=== PATIENT | male | born 1965 | race Caucasian/White ===

== ENCOUNTER → 2018-09-16 | Outpatient (CLI) | payer OTHER ==
[2015-01-08 14:30] VITALS: BP 155/99
[~2018-09-16] MED LIST: ALBU2.5V8 INH; CETI10TA16 PO; DILT120C2 PO; FOLI1TAB6 PO; FURO40TA4 PO; POTA10TA12 PO; RIVA20TA2 PO; VARE0.5T PO
--- NOTE | 2018-09-17 08:53 | CARD ---
MR#: [id number] Date of Study: 09/16/2018 Ordering Physician: STANLEY OLVERA, Referring Physician: STANLEY OLVERA Tech: Sherine Islas RDCS APPROVED REPORT EXAM: Two-dimensional and M-mode echocardiogram with Doppler and color Doppler. Other Information Quality : Good Rhythm : Atrial Fibrillation INDICATION Atrial Fibrillation 2D DIMENSIONS RVDd3.2 (2.9-3.5cm)Left Atrium(2D)3.9 (1.6-4.0cm) IVSd1.1 (0.7-1.1cm)Aortic Root(2D)3.7 (2.0-3.7cm) LVDd6.1 (3.9-5.9cm)LVOT Diameter2.1 (1.8-2.4cm) PWd1.1 (0.7-1.1cm)LVDs4.2 (2.5-4.0cm) FS (%) 31.6 %SV110.1 ml LVEF(%)58.6 (>50%) Aortic Valve AoV Peak Aaron.169.2cm/sAoV VTI30.6cm AO Peak GR.11.4mmHgLVOT Peak Aaron.130.9cm/s AO Mean GR.6mmHgAVA (VMAX)2.75cm2 BLANCA (VTI)3.52kq6MN P 1/2 Gzcd519qt Mitral Valve MV E Qvsolasr976.8cm/sMV DECEL IVDB236te MV A Velocity2.0cm/sE/A Ratio61.9 Tricuspid Valve TR P. Nwxseban657ew/sRAP SGPXPWND8leDn TR Peak Gr.77poYuVXVI85pxYh Pulmonary Vein S1 Uukuitnj61.4cm/sD2 Cgxpxqaz68.1cm/s LEFT VENTRICLE The Left Ventricle is mildly dilated. There is normal left ventricular wall thickness. The left ventr icular systolic function is normal and the ejection fraction is within normal range. The Ejection Fra ction is 55-60%. There is normal LV segmental wall motion. Tissue Doppler imaging reveals moderate le ft ventricular diastolic dysfunction. RIGHT VENTRICLE The right ventricle is normal size. The right ventricular systolic function is normal. ATRIA The left atrium is mildly dilated. The right atrium size is normal. The interatrial septum is intact with no evidence for an atrial septal defect or patent foramen ovale as noted on 2-D or Doppler imagi ng. AORTIC VALVE The aortic valve is sclerotic and not well visualized. Doppler and Color Flow revealed trace to mild aortic regurgitation. There is no significant aortic valvular stenosis. MITRAL VALVE The mitral valve is normal in structure and function. There is no evidence of mitral valve prolapse. There is no mitral valve stenosis. Doppler and Color-flow revealed mild mitral regurgitation. TRICUSPID VALVE The tricuspid valve is normal in structure and function. Doppler and Color Flow revealed trace tricus pid regurgitation. The PA pressure was estimated at 35 mmHg. There is no tricuspid valve stenosis. PULMONIC VALVE The pulmonic valve is not well visualized. Doppler and Color Flow revealed mild pulmonic valvular reg urgitation. There is no pulmonic valvular stenosis. GREAT VESSELS The aortic root is normal in size. The ascending aorta is mildl to moderately dilated at 4.1 cm. The IVC is normal in size and collapses >50% with inspiration. PERICARDIAL EFFUSION There is no evidence of significant pericardial effusion. Critical Notification Critical Value: No <Conclusion> The left ventricular systolic function is normal and the ejection fraction is within normal range. Th e Ejection Fraction is 55-60%. There is normal LV segmental wall motion. Doppler and Color Flow revealed trace tricuspid regurgitation. The PA pressure was estimated at 35 mm Hg. The ascending aorta is mild to moderately dilated at 4.1 cm. Signed by : Eleazar Duque, Electronically Approved : 09/17/2018 08:51:45
== END | disposition home or self-care (01) ==
LOC: ECHO 08:32
PROVIDERS: ATTEND Internal Medicine Cardiovascular Disease
DX: I08.8 Other rheumatic multiple valve diseases (principal); I48.0 Paroxysmal atrial fibrillation
CPT/HCPCS: 93306